=== PATIENT | female | born 1955 | race African-American/Black ===

== ENCOUNTER 2019-05-14 05:22 | Emergency (ER) | payer OTHER ==
[~2019-05-14] VITALS: Ht 167.6 cm; Wt 100.0 kg
[2019-05-14 05:54] LABS: HEMATOCRIT. 41.2 % (36.0-48.0); HEMOGLOBIN. 13.6 g/dL (12.0-16.0); MEAN CORPUSCULAR HEMOGLOBIN 28.4 pg (28.0-32.0); MEAN CORPUSCULAR VOLUME 86.3 fL (81.0-99.0); RED BLOOD CELL COUNT 4.77 mill/uL (4.2-5.4); RED CELL DISTRIBUTION WIDTH 15.6 % (11.6-14.6)
[2019-05-14 06:36] LABS: CHLORIDE 103 mEq/L (98-107)
[2019-05-14 06:54] LABS: PLATELET ESTIMATE NORMAL
[2019-05-14] MEDS ORDERED: OXYCODONE HCL/ACETAMINOPHEN 5/325MG TABLET PO ONE (07:00)
[2019-05-14 08:34] VITALS: BP 173/99
== END 2019-05-14 08:35 | disposition home or self-care (01) ==
LOC: ER 05:22
DX: M54.6 Pain in thoracic spine (principal); I10 Essential (primary) hypertension; E11.9 Type 2 diabetes mellitus without complications; F12.10 Cannabis abuse, uncomplicated; Z88.2 Allergy status to sulfonamides
CPT/HCPCS: 36415; 71045; 83880; 84484; 93005; 99284